=== PATIENT | female | born 1995 | race American Indian/Alaskan Native ===

== ENCOUNTER 2018-02-05 11:30 | Inpatient (IN) | payer MEDICAID ==
--- NOTE | 2018-02-10 06:15 | Ultrasound Report ---
FINAL REPORT EXAM: US OB LIMITED HISTORY: PRESENTATION TECHNIQUE: A limited OB sonogram was obtained for evaluation of position. FINDINGS: The fetus is in cephalic presentation. The heart rate is 156 BPM. The placenta is anterior and is grade 2. The CROW is 11.3 cm. IMPRESSION: Cephalic presentation. heart rate is 156 BPM.
[2018-02-10] MEDS ORDERED: STADOL IV PRN (06:58)
[2018-02-10] MEDS ORDERED: PITOCin/NS 20 UNIT/1000ML DRIP 20,000 MILLIUNITS/1,000 ML BAG IV ONE (07:01)
[2018-02-10] MEDS ORDERED: SUBLIMAZE ONE (07:06)
[2018-02-10] MEDS ORDERED: SUBLIMAZE IV ONE (07:18)
[2018-02-10] MEDS ORDERED: POLYCILLIN/NS 2 GM/100 ML 2 GM/100 ML BAG IV ONE (07:45)
--- NOTE | 2018-02-10 07:52 | History and Physical Report ---
History of Present Illness Date of examination: 02/10/18 Date of admission: 02/10/18 05:37 Chief complaint: I'm in labor History of present illness: Patient is a 22 year old who presents in active labor at 40.5 weeks gestation with EDC 02/04/18. Patient is desiring a , but was to be sectioned on 02/12/18 if she did not go into labor on her own. Per the patient, she has had an uncomplicated course and receives care with [facility] logistics analyst. records are not available for review. Past History Past Medical History: no pertinent history Past Surgical History: section Family/Genetic History: none Social history: single - Obstetrical History Expected Date of Delivery: 02/04/18 Actual Gestation: 40 Week(s) 6 Day(s) : 2 Para: 1 Number of Living Children: 1 Medications and Allergies Allergies Allergy/AdvReac Type Severity Reaction Status Date / Time No Known Allergies Allergy Unverified 02/10/18 05:41 Active Meds: Active Medications Butorphanol Tartrate (Stadol) 2 mg IV Q2H PRN PRN Reason: Labor Pain Lactated Ringer's (Lactated Ringers) 1,000 mls @ 125 mls/hr IV DIRECT GLORIA Ampicillin Sodium (Polycillin/Ns 2 Gm/100 Ml) 2 gm in 100 mls @ 100 mls/hr IV ONCE ONE Stop: 02/10/18 08:44 Review of Systems All systems: negative Genitourinary: contractions Rectal Exam: deferred - Vital Signs Vital signs: Vital Signs Temp Resp 98.6 F 18 02/10/18 06:17 02/10/18 06:17 Temp Pulse Resp BP Pulse Ox 98.6 F 18 02/10/18 06:17 02/10/18 06:17 - Physical Exam Breasts: Positive: deferred Cardiovascular: Regular rate, Normal S1, Normal S2 Lungs: Positive: Clear to auscultation, Normal air movement Abdomen: Positive: normal appearance, soft, normal bowel sounds Genitourinary (Female): Positive: normal external genitalia, normal perenium Vagina: Positive: normal moisture Uterus: Positive: normal size Extremities: Positive: normal Deep Tendon Reflex Grade: Normal +2 - Obstetrical Cervical Dilatation: 5 Cervical Effacement Percentage: 90 station: -1 Uterine Contraction Pattern: Regular Uterine Tone Measurement Phase: Contraction Uterine Contraction Intensity: Strong/Firm Results All other labs normal. Assessment and Plan IUP at 40.6 weeks in active labor with possible . Fetus is vertex, but there is an abnormality in the presenting part with what appears to be the bridge of the nose palpable on the patient's left side. Ultrasound was performed earlier in triage, but did not add any pertinent information. Will repeat bedside u/s to further evaluate. Patient with incidental arom during vaginal exam for light meconium fluid. Will proceed with attempts to rotate head by repositioning patient, but patient and family advised that if head does not properly flex, will need to proceed with repeat .
[2018-02-10 07:53] LABS: Mean Corpuscular HGB Conc 33 % (30-34); Mean Corpuscular Hemoglobin 27 pg (28-32); Mean Corpuscular Volume 81 fl (79-97); Platelet Count 170 K/mm3 (140-440); Red Blood Count 3.35 M/mm3 (3.65-5.03); Red Cell Distribution Width 16.6 % (13.2-15.2)
[2018-02-10] MEDS ORDERED: LACTATED RINGERS 1,000 ML IV SCH ×2 (08:00→10:00)
[2018-02-10] MEDS ORDERED: REGLAN IV ONE (09:06)
[2018-02-10] MEDS ORDERED: PEPCID IV ONE (09:06)
[2018-02-10] MEDS ORDERED: BICITRA PO ONE (09:06)
--- NOTE | 2018-02-10 09:12 | Event Note ---
Date: 02/10/18 On repeat exam, fetus is now with complete face presentation. Patient and family were advised and patient was still insisting on trial of labor. I advised patient that we could possibly flex head but that she would need epidural to complete same for increased comfort. Patient adamantly refused epidural; ...she then agreed to , but requested general anesthesia stating that she would not be able to "sit still" during the epidural process. Will now proceed with urgent
[2018-02-10] MEDS ORDERED: ANCEF/STERILE WATER 2 GM/20 ML 2 GM/20 ML SYRINGE IV ONE (09:14)
[2018-02-10] MEDS ORDERED: DIPRIVAN 10 MG/ML IV ONE (09:36)
[2018-02-10] MEDS ORDERED: QUELICIN ONE (09:37)
[2018-02-10] MEDS ORDERED: XYLOCAINE MPF 2% ONE (09:38)
[2018-02-10] MEDS ORDERED: ZOFRAN ONE (09:53)
[2018-02-10] MEDS ORDERED: DECADRON ONE (09:53)
[2018-02-10] MEDS ORDERED: DILAUDID ONE (09:53)
[2018-02-10] MEDS ORDERED: NARCAN 2 MG/2 ML ONE (09:54)
--- NOTE | 2018-02-10 09:54 | Anesthesia Consultation ---
Anesthesia Consult and Med Hx Date of service: 02/10/18 - Airway Anesthetic Teeth Evaluation: Good ROM Head & Neck: Adequate Mental/Hyoid Distance: Adequate Mallampati Class: Class II Intubation Access Assessment: Good - Pulmonary Exam CTA: Yes - Cardiac Exam Cardiac Exam: No Murmur - Pre-Operative Health Status ASA Pre-Surgery Classification: ASA2, Emergency Proposed Anesthetic Plan: General - Pulmonary Hx Asthma: No COPD: No Hx Pneumonia: No - Cardiovascular System Hx Hypertension: No - Central Nervous System Hx Seizures: No Hx Psychiatric Problems: No - Endocrine Hx Renal Disease: No Hx End Stage Renal Disease: No Hx Hypothyroidism: No Hx Hyperthyroidism: No - Hematic Hx Anemia: Yes Hx Sickle Cell Disease: No - Other Systems Hx Alcohol Use: No
[2018-02-10] MEDS ORDERED: PITOCin/NS 20 UNIT/1000ML DRIP 20 UNITS/1,000 ML BAG IV SCH ×2 (10:00→11:00)
[2018-02-10] MEDS ORDERED: NACL 0.9% IR ONE (10:22)
[2018-02-10] MEDS ORDERED: WATER FOR IRRIG STERILE IR ONE (10:22)
--- NOTE | 2018-02-10 10:48 | Procedure Note ---
OB Delivery Note - Delivery Date of Delivery: 02/10/18 Surgeon: PAULINA JARA [employer] Architect: BISI AGRAWAL Estimated blood loss: 1000cc - Section Preop diagnosis: repeat , desires sterilization Postop diagnosis: same section procedure: repeat low transverse, bilateral tubal ligation Disposition: PACU Complications: none Narrative: see op report - Infant A at 1 minute: 5 (9 pounds 14 ounces 20 1/2 inches) at 5 minutes: 9 Gender: Female
[2018-02-10] MEDS ORDERED: BENADRYL IV PRN (10:58)
[2018-02-10] MEDS ORDERED: NARCAN 0.4 MG/1 ML IV PRN ×2 (10:58→10:59)
--- NOTE | 2018-02-10 10:58 | Operative Report ---
Operative Report Operative Report: The operative report for patient Sarahi Whyte Date of service 02/10/2018 Preoperative diagnosis: Intrauterine at 40-6/7 weeks 2. malpresentation 3. Previous section 4. Undesired fertility Postoperative diagnosis: Same Procedure: Repeat low transverse section with bilateral tubal ligation Surgeon: Dr. Hafsa Ross Anesthesia: General EBL: 1000 Urine output: 150 mL IV fluids: 1000 mL Findings: Viable female in the face presentation, mentum posterior position. Weight 9 lbs. 14 oz. Apgars 5 and 9]. Otherwise normal pelvic anatomy Specimens: Portion of right and left fallopian tubes Complications: None Indication: Ms. Whyte is a 22-year-old 2 para 1 who presented in active labor at 40-6/7 weeks. Her labor was progressing normally when on exam and abnormality was noted in the presenting part. Ultrasound revealed a extended neck which was consistent with a face presentation. This was confirmed on further examination. Patient was informed of the findings and decision was made to proceed with section Procedure: Patient was taken to the OR with IV and Contreras in place. She was prepped and draped in normal sterile fashion. She was placed under general anesthesia and signal was given to the doctor to begin the surgery. Incision was made with the scalpel with care to the underlying fascia using the scalpel the fascia itself was also incised using the scalpel until about the layers of the rectus muscles were visualized. The fascia was then dissected from the underlying rectus muscles in a series of sharp and blunt dissection using the Gruber scissors. Muscles were in the in the midline sharply using Metzenbaum scissors and the peritoneum was entered into bluntly using the surgeon's fingers. A bladder blade was then placed into the incision to protect the bladder. Following this the bladder flap was created. Hysterotomy incision was then made in the scalpel. Upon uterine entry, the amniotic sac was ruptured for meconium-stained fluid. The infant was then delivered by flexion of the neck to an occiput anterior position position. Her mouth and nose were suctioned on the field. The cord was clamped and cut and he was handed to the waiting NICU personnel. The uterus was then exteriorized and cleared of all clots and debris. The hysterotomy incision was then closed in a running locked fashion using 0 Vicryl. Attention was then turned to the patient's fallopian tubes. Tube was grasped with a Gomer clamp. The ligament was incised using the Bovie. Each tube was ligated using the Sidell style tubal ligation. The abdomen was then copiously irrigated with warm normal saline. Following this the uterus was replaced into the abdominal cavity. At this point the muscles were reapproximated in the midline using individual sutures of 0 Vicryl. Following this the fascia was closed in a running fashion using 0 Vicryl. Tissue was then copiously irrigated. . Skin was closed in a running fashion using 3-0 Monocryl. The sponge lap needle and instrument counts were correct 2. The patient tolerated the procedure well. She was taken to recovery in stable condition.
[2018-02-10] MEDS ORDERED: LANSINOH TP PRN (10:59)
[2018-02-10] MEDS ORDERED: MYLICON PO PRN (10:59)
[2018-02-10] MEDS ORDERED: TUCKS PAD TP PRN (10:59)
[2018-02-10] MEDS ORDERED: NACL 0.9% 1000 ML 1,000 ML IV SCH (11:00)
[2018-02-10] MEDS ORDERED: SODIUM CHLORIDE FLUSH SYRINGE 10 ML IV NR (11:00)
[2018-02-10] MEDS ORDERED: MORPHINE PCA 30MG/30ML IV SCH (11:00)
[2018-02-10] MEDS ORDERED: D5LR 1,000 ML IV SCH (11:00)
[2018-02-10 23:05] LABS: Hematocrit 18.3 % (30.3-42.9)
[2018-02-11] MEDS: SENOKOT S PO SCH ×3 (00:12→22:34)
[2018-02-11] MEDS: MOTRIN PO PRN ×2 (00:14→10:40)
[2018-02-11] MEDS: PERCOCET 5/325 PO PRN ×3 (05:46→22:32)
[2018-02-11] MEDS ORDERED: FEOSOL PO SCH ×2 (10:00)
[2018-02-11] MEDS: FEOSOL PO SCH ×2 (10:40→22:33)
[2018-02-11] MEDS: PRENATAL VITAMIN PO SCH (10:40)
[2018-02-11 13:33] LABS: Hematocrit 19.3 % (30.3-42.9)
--- NOTE | 2018-02-11 13:58 | Progress Note ---
Assessment and Plan POD 1 s/p repeat ltcs for failed . Patient feels well despite low henoglobin. Discussed possibility of transfusion with patient but she refused and agreed to take iron supplements instead. Continue routine post op care. Subjective - Subjective Date of service: 02/11/18 Interval history: Patient is a 22 year old who presents in active labor at 40.5 weeks gestation with EDC 02/04/18. Patient is desiring a , but was to be sectioned on 02/12/18 if she did not go into labor on her own. Per the patient, she has had an uncomplicated course and receives care with [facility] inspector. records are not available for review. Patient reports: appetite normal, voiding normally, pain well controlled [place]: doing well Objective - Vital Signs Latest vital signs: Vital Signs Temp Pulse Resp BP Pulse Ox 02/11/18 05:46 18 02/11/18 00:30 98.7 F 70 16 121/79 02/11/18 00:14 18 02/10/18 20:30 18 02/10/18 19:30 98.6 F 71 16 119/71 02/10/18 17:25 97.6 F 102 H 18 116/79 99 Intake and Output 02/10/18 02/11/18 02/11/18 22:59 06:59 14:59 Intake Total 480 300 Output Total 1200 2100 Balance -720 -1800 Intake: Oral 480 Intake, Free Water 300 Output: Urine 1200 2100 Indwelling Catheter 800 800 Uretheral (Contreras) 400 500 Void 800 Other: Total, Intake Amount 480 Total, Output Amount 800 800 # Voids Void 1 - Exam Breasts: Present: deferred Cardiovascular: Present: Regular rate, Normal S1, Normal S2 Lungs: Present: Clear to auscultation, Normal air movement Abdomen: Present: normal appearance, soft, normal bowel sounds Uterus: Present: normal, firm, fundal height below umbilicus Extremities: Present: normal Deep Tendon Reflex Grade: Normal +2 Incision: Present: normal, intact, dressed - Labs Labs: Abnormal lab results 02/10/18 02/11/18 Range/Units 22:36 13:19 Hgb 6.0 L D 6.0 L (10.1-14.3) gm/dl Hct 18.3 L* D 19.3 L* (30.3-42.9) %
[2018-02-11] MEDS: ZOFRAN IV PRN (15:43)
[2018-02-12] MEDS: PERCOCET 5/325 PO PRN ×3 (06:20→22:21)
[2018-02-12 07:02] LABS: Amphetamine Screen,Urine PRESUMPTIVE NEGATIVE; Benzodiazepines Screen,Urine PRESUMPTIVE NEGATIVE; Cannabinoid Screen,Urine PRESUMPTIVE NEGATIVE; Cocaine Screen,Urine PRESUMPTIVE NEGATIVE; Methadone Screen,Urine PRESUMPTIVE NEGATIVE; Opiate Screen,Urine PRESUMPTIVE NEGATIVE
--- NOTE | 2018-02-12 08:51 | Progress Note ---
Assessment and Plan - Patient Problems (1) Anemia Current Visit: Yes Status: Acute Plan to address problem: transfuse 2 units prbcs Subjective - Subjective Date of service: 02/12/18 Interval history: Patient with a drop in hemoglobin after surgery. Patient initially refused transfusion but has agreed today. She reports feeling fatigued Patient reports: appetite normal, voiding normally, pain well controlled [place]: doing well Objective - Vital Signs Latest vital signs: Vital Signs Temp Pulse Resp BP Pulse Ox 02/12/18 08:32 98.5 F 86 18 81/42 02/12/18 00:00 98.0 F 100 H 18 101/55 02/11/18 17:15 97.8 F 98 H 18 108/55 100 02/11/18 12:00 97.9 F 89 18 84/46 99 02/11/18 10:45 98.3 F 106 H 20 104/61 Intake and Output 02/11/18 02/12/18 02/12/18 22:59 06:59 14:59 Intake Total 240 240 120 Balance 240 240 120 Intake: Oral 240 120 Intake, Free Water 240 Other: Total, Intake Amount 240 120 # Voids Void 1 1 - Labs Labs: Abnormal lab results 02/10/18 02/11/18 Range/Units 06:12 13:19 Hgb 6.0 L (10.1-14.3) gm/dl Hct 19.3 L* (30.3-42.9) % Crossmatch See Detail
[2018-02-12] MEDS ORDERED: NACL 0.9% 500 ML 500 ML IV NR (09:00)
[2018-02-12] MEDS ORDERED: BENADRYL PO NR (09:00)
[2018-02-12] MEDS ORDERED: TYLENOL PO NR (09:00)
[2018-02-12] MEDS: FEOSOL PO SCH ×2 (10:21→22:41)
[2018-02-12] MEDS: PRENATAL VITAMIN PO SCH (10:21)
[2018-02-12] MEDS: SENOKOT S PO SCH (22:41)
[2018-02-12 23:48] LABS: Hematocrit 22.2 % (30.3-42.9); Hemoglobin 7.3 gm/dl (10.1-14.3)
[2018-02-13] MEDS: PERCOCET 5/325 PO PRN ×2 (06:02→11:36)
[2018-02-13] MEDS: FEOSOL PO SCH (08:35)
[2018-02-13] MEDS: SENOKOT S PO SCH (08:35)
[2018-02-13] MEDS: ZOFRAN IV PRN (08:36)
[2018-02-13] MEDS: PRENATAL VITAMIN PO SCH (08:36)
--- NOTE | 2018-02-13 08:59 | Progress Note ---
Assessment and Plan - Patient Problems (1) Anemia Current Visit: Yes Status: Acute Plan to address problem: Patient well Discharge home Subjective - Subjective Date of service: 02/13/18 Interval history: Patient tolerated transfusion of blood products without complication. She reports feeling better. The patient is meeting discharge criteria. Patient reports: appetite normal, voiding normally, pain well controlled [place]: doing well Objective - Vital Signs Latest vital signs: Vital Signs Temp Pulse Resp BP BP Pulse Ox 02/13/18 06:02 18 02/13/18 00:37 98.2 F 91 H 18 102/64 94 02/12/18 22:21 18 02/12/18 16:56 98.6 F 105 H 16 107/70 99 02/12/18 16:35 98.9 F 100 H 18 113/75 99 02/12/18 15:58 97 H 16 106/65 98 02/12/18 15:54 98.9 F 103 H 16 107/68 98 02/12/18 15:00 98.7 F 98 H 20 113/75 99 02/12/18 14:33 98.5 F 98 H 20 101/60 99 02/12/18 14:03 98.5 F 106 H 16 112/71 98 02/12/18 13:33 98.6 F 104 H 16 110/65 99 02/12/18 13:02 98.8 F 104 H 18 105/64 100 02/12/18 13:00 98.4 F 106 H 18 109/67 100 02/12/18 12:31 98.4 F 97 H 12 102/63 100 02/12/18 12:08 97.9 F 99 H 16 109/67 100 Intake and Output 02/12/18 02/13/18 02/13/18 22:59 06:59 14:59 Intake Total 1110 840 Balance 1110 840 Intake: IV 250 Right Antecubital 250 Oral 360 840 Blood Product 500 Leukoreduced Red Blood 250 Cells Unit [id number] Leukoreduced Red Blood 250 Cells Unit [id number] Other: Total, Intake Amount 120 640 # Voids Indwelling Catheter 1 Void 3 # Bowel Movements 0 - Exam Incision: Present: normal - Labs Labs: Abnormal lab results 02/10/18 02/12/18 Range/Units 06:12 22:57 Hgb 7.3 L (10.1-14.3) gm/dl Hct 22.2 L (30.3-42.9) % Crossmatch See Detail
--- NOTE | 2018-02-13 09:01 | Discharge Summary ---
Providers - Providers Date of Admission: 02/10/18 05:37 Date of discharge: 02/13/18 Attending physician: KIM GARIBAY Primary care physician: KIM GARIBAY Hospitalization Reason for admission: active labor Delivery: Procedure: section, repeat low transverse Discharge diagnosis: IUP at term delivered baby: female Hospital course: Patient admitted in labor however had a failed E Luis Alberto attempt. The patient underwent a repeat delivery. Her postoperative course was complicated by anemia. The patient's transfused 2 units of packed red blood cells during her hospitalization. She was discharged home on postoperative day #3 meeting all discharge criteria. Condition at discharge: Good Disposition: DC-01 TO HOME OR SELFCARE - Discharge Diagnoses (1) Anemia Status: Acute Plan - Discharge Medications Prescriptions: Docusate Sodium [Colace] 100 mg PO BID PRN #60 capsule PRN Reason: Constipation Ferrous Sulfate [Feosol 325 MG tab] 325 mg PO BID #60 tablet Ibuprofen [Motrin] 800 mg PO Q8HR PRN #60 tablet PRN Reason: Pain oxyCODONE /ACETAMINOPHEN [Percocet 5/325] 1 tab PO Q6HR PRN #45 tablet PRN Reason: Pain - Provider Discharge Summary Activity: no sex for 6 weeks, no heavy lifting 4 weeks, no strenuous exercise Diet: routine Instructions: routine Additional instructions: [] Smoking cessation referral if applicable(refer to patient education folder for contact #) [] Refer to [facility] Booklet Call your doctor immediately for: * Fever > 100.5 * Heavy vaginal bleeding ( >1 pad per hour) * Severe persistent headache * Shortness of breath * Reddened, hot, painful area to leg or breast * Scheduled follow-up in 2 weeks for an incision check - Follow up plan
[2018-02-13 09:48] VITALS: BP 105/75
== END 2018-02-13 11:45 | disposition home or self-care (01) | DRG 765 ==
LOC: APU 02-10 05:37 → LD 02-10 06:03 → OB 02-10 16:18
PROVIDERS: ADMIT Obstetrics & Gynecology; ATTEND Obstetrics & Gynecology
PROC: 10D00Z1 Extraction of Products of Conception, Low, Open Approach (ICD-10-PCS; principal; 2018-02-10)
PROC: 0UL70ZZ Occlusion of Bilateral Fallopian Tubes, Open Approach (ICD-10-PCS; 2018-02-10)
PROC: 30233N1 Transfusion of Nonautologous Red Blood Cells into Peripheral Vein, Percutaneous Approach (ICD-10-PCS; 2018-02-12)
DX: O34.211 Maternal care for low transverse scar from previous cesarean delivery (principal); R71.0 Precipitous drop in hematocrit; Z3A.40 40 weeks gestation of pregnancy; Z37.0 Single live birth; O32.3XX0 Maternal care for face, brow and chin presentation, not applicable or unspecified; O90.81 Anemia of the puerperium
CPT/HCPCS: 36415; 76815; 80307; 85014; 85018; 85027; 86592; 86706; 86762; 86850; 86900; 86901; 86920; 87806; 88302; J0290; J0330; J0595; J0690; J1100; J1170; J2270; J2310; J2405; J2590; J2704; J2765; J3010; J7040; J7120; P9016